=== PATIENT | male | born 1970 | race Native Hawaiian/Other Pacific Islander ===

== ENCOUNTER → 2019-09-16 | Outpatient (CLI) | payer BC | LOC: LAB.O 14:01 | PROVIDERS: ATTEND Nurse Practitioner Acute Care | DX: R71.8 Other abnormality of red blood cells (principal) ==

== ENCOUNTER → 2019-09-23 | Outpatient (CLI) | payer BC | LOC: LAB.O 15:31 | PROVIDERS: ATTEND Family Medicine | DX: D45 Polycythemia vera (principal) ==

== ENCOUNTER → 2019-09-30 | Outpatient (CLI) | payer BC | LOC: LAB.O 12:31 | PROVIDERS: ATTEND Family Medicine | DX: D45 Polycythemia vera (principal) ==

== ENCOUNTER → 2019-10-14 | Outpatient (CLI) | payer BC | LOC: LAB.O 13:19 | PROVIDERS: ATTEND Internal Medicine Hematology & Oncology | DX: D45 Polycythemia vera (principal) ==

== ENCOUNTER → 2019-10-21 | Outpatient (CLI) | payer BC | LOC: LAB.O 15:43 | PROVIDERS: ATTEND Internal Medicine Hematology & Oncology | DX: D45 Polycythemia vera (principal) ==

== ENCOUNTER → 2020-02-27 | Outpatient (CLI) | payer BC | LOC: LAB.O 20:02 | PROVIDERS: ATTEND Internal Medicine Hematology & Oncology | DX: D45 Polycythemia vera (principal) ==

== ENCOUNTER → 2020-03-25 | Outpatient (CLI) | payer BC ==
--- NOTE | 2020-03-26 08:38 | RAD ---
EXAM DESCRIPTION: Lumbar Spine 3 Views CLINICAL HISTORY: 49 years Male, LOW BACK PAIN COMPARISON: None available. FINDINGS: The vertebral body heights are well-maintained with no acute compression deformity. Multilevel degenerative disc disease and facet arthropathy is noted, worse at L4-L5 and L5-S1 levels. No evidence of spondylolysis or spondylolisthesis. The visualized prevertebral and paravertebral soft tissues appear grossly unremarkable. IMPRESSION: Multilevel degenerative disc disease and facet arthropathy is noted, worse at L4-L5 and L5-S1 levels. Electronically signed by: Lisa Sparrow MD 03/26/2020 8:36 AM CDT
== END ==
LOC: RAD 17:58
PROVIDERS: ATTEND Nurse Practitioner Family
DX: M51.36 Other intervertebral disc degeneration, lumbar region (principal); M12.9 Arthropathy, unspecified